=== PATIENT | male | born 1950 | race Caucasian/White ===

== ENCOUNTER 2018-12-02 04:51 | Observation (INO) | payer OTHER, MEDICARE ==
--- NOTE | 2018-11-29 10:54 | GHP ---
[f rep st] PREOP HISTORY AND PHYSICAL DATE OF ADMISSION: 12/02/2018 DATE OF SURGERY AND ADMISSION: December 02. HISTORY OF PRESENT ILLNESS: The patient is a 68-year-old male with left arm and shoulder pain. He has a history of an anterior cervical diskectomy and fusion in 2009 in [place] at C5-C7. He recently had an incident where he slipped and fell on ice, which resulted in arm numbness, tingling and the inability to move his arms with a warming sensation throughout his body. The symptoms eventually resolved. Today he continues to have occasional bilateral deltoid and biceps pain with burning numbness in bilateral thumbs and into the middle 2 fingers. PAST MEDICAL HISTORY: Hypertension, dyslipidemia. PAST SURGICAL HISTORY: ACDF in 2009, right shoulder surgery, left shoulder surgery. SOCIAL HISTORY: Patient admits to drinking alcohol socially and is a former tobacco user and quit 9 years ago. ALLERGIES: Amoxicillin. CURRENT HOME MEDICATIONS: Multivitamin, lisinopril, Synthroid, albuterol, Tylenol, and Pravachol. FAMILY HISTORY: No pertinent neurosurgical family history. PHYSICAL EXAM: GENERAL: Patient seen and examined. Appears to be in no apparent distress. Mood and affect are appropriate. Alert and oriented. Pupils are equal and reactive. Extraocular movements are intact. Facial expression is symmetrical. Tongue is midline with protrusion. Hearing is grossly intact. Speech is fluent without any dysarthria. Muscle strength is well preserved in his upper and lower extremities at a 5/5 and sensation is intact to light touch. Results MRI of the cervical spine from September 2018 shows prior anterior cervical diskectomy and fusion at C5-C7, mild central spinal stenosis and moderate to severe bilateral neural foraminal narrowing at C3-4. At C4-5, there is moderate to severe central spinal stenosis secondary to disk osteophyte complex that is eccentric to the left and compresses the left aspect of the cord without myelomalacia. Moderate right and abaekemp-rt-xkljqd left neural foraminal narrowing. There is a small disk protrusion and moderate right neural foraminal narrowing at C7-T1. Cervical spine x-ray from October 2018 shows used ACDF at 5-7, CT cervical spine shows healed C5-7 ACDF. Mild bony central canal stenosis at C3-4 and C4-5. Multilevel bony foraminal stenosis, himijimo-dj-eewehg bilateral C3-4, moderate left and mild right C4-5, moderate left and mild right C5-6, tjim-bc-ozpxywev right C7 and moderate right C7-T1. ASSESSMENT/PLAN: In summary, the patient is a 68-year-old male with bilateral upper extremity symptoms with history of prior anterior cervical diskectomy and fusion at C5-7. Recommend proceeding with surgical intervention at this point with an anterior cervical diskectomy and fusion at C3-4 and C4-5. The risks, benefits, and procedure were discussed in detail with the patient as well as the recovery period. We will have ENT assist in surgery with the approach and he has already undergone this preop evaluation in their office. The patient has elected to move forward with surgery. Consents were signed and all questions and concerns were addressed and answered. /[id number]/MODL ZAMZAM
[2018-12-02] MEDS ORDERED: ACETAMINOPHEN 500 MG TAB PO ONE (05:50)
[2018-12-02] MEDS ORDERED: ceFAZolin 2 GM/DEXTROSE 100 ML IV ONE (05:50)
[2018-12-02] MEDS ORDERED: LR 1,000 ML IV ONE (05:51)
--- NOTE | 2018-12-02 06:57 | PDHPUP ---
History & Physical Update H&P update statement: This history and physical update is based on an assessment of the patient which was completed after admission or registration (within 24 hours), but prior to the surgery/procedure. H&P update: H&P reviewed & patient examined
[2018-12-02] MEDS ORDERED: CHLORHEXIDINE GLUC HIBICLENS 118 ML BTL TP ONE (06:59)
[2018-12-02] MEDS ORDERED: SURGIFLO MATRIX KIT WITH THROMBIN 8 ML TP ONE ×2 (06:59→09:26)
[2018-12-02] MEDS ORDERED: BUPIVACAINE/EPI 0.25% 10 ML SDV ONE (06:59)
[2018-12-02] MEDS ORDERED: THROMBIN (BOVINE) 5,000 UNIT VIAL TP ONE (06:59)
[2018-12-02] MEDS ORDERED: BACITRACIN 50,000 UNITS/10 ML SYR IRR ONE (07:00)
[2018-12-02] MEDS ORDERED: MIDAZOLAM 2 MG/2 ML VIAL IVP ONE (07:09)
--- NOTE | 2018-12-02 07:09 | PDANEPAE ---
ANE History of Present Illness C34-C45 ant cervical fusion, discectomy ANE Past Medical History - Cardiovascular History Hx Hypertension: Yes Hx Arrhythmias: No Hx Chest Pain: No Hx Coronary Artery / Peripheral Vascular Disease: No Hx CHF / Valvular Disease: No Hx Palpitations: No - Pulmonary History Hx COPD: No Hx Asthma/Reactive Airway Disease: Yes Hx Recent Upper Respiratory Infection: No Hx Oxygen in Use at Home: No Hx Sleep Apnea: No Sleep Apnea Screening Result - Last Documented: Positive Pulmonary History Comment: INHALER - Neurologic History Hx Cerebrovascular Accident: No Hx Seizures: No Hx Dementia: No - Endocrine History Hx Diabetes: No Endocrine History Comment: HYPOTHYROID - Renal History Hx Renal Disorders: No - Liver History Hx Hepatic Disorders: No - Neurological & Psychiatric Hx Hx Neurological and Psychiatric Disorders: No - Cancer History Hx Cancer: No - Congenital Disorder History Hx Congenital Disorders: No - GI History Hx Gastrointestinal Disorders: No - Other Health History Other Health History: NEG - Chronic Pain History Chronic Pain: Yes (NECK,SHOULDER,ARM) - Surgical History Prior Surgeries: HERNIA KIKE REPAIR. CERVICAL FUSION C5 - C7. L SHOULDER SCOPE. R SHOULDER /CLAVICLE. R KNEE SCOPE. APPENDECTOMY. TONSILLECTOMY ANE Review of Systems Review of Systems: - Exercise capacity METS (RN): 5 METS ANE Patient History - Allergies Allergies/Adverse Reactions: amoxicillin Allergy (Verified 11/11/18 11:35) Vomiting - Home Medications Home Medications: Acetaminophen [Tylenol ES 500 mg (*)] 500 - 1,000 mg PO Q6 PRN 11/11/18 [Last Taken 11/30/18] Albuterol [Proventil Inhaler HFA (*)] 1 - 2 puffs IH Q4H PRN 11/11/18 [Last Taken Unknown] Levothyroxine [Synthroid 25 mcg (*)] 25 mcg PO DAILY06 11/11/18 [Last Taken ] Lisinopril [Zestril 10 mg (*)] 10 mg PO HS 11/11/18 [Last Taken 12/01/18] Multivitamins [Multivitamin (*)] 1 each PO DAILY 11/11/18 [Last Taken 11/30/18] Pravastatin Sodium [Pravachol] 40 mg PO HS 11/11/18 [Last Taken 11/30/18] - NPO status NPO Since - Liquids (Date): 12/02/18 NPO Since - Liquids (Time): 00:01 NPO Since - Solids (Date): 12/01/18 NPO Since - Solids (Time): 16:00 - Smoking Hx Smoking Status: Former smoker - Family Anes Hx Family Hx Anesthesia Complications: NEG ANE Labs/Vital Signs - Vital Signs Blood Pressure: 124/82 Heart Rate: 63 Respiratory Rate: 16 O2 Sat (%): 94 Height: 189.23 cm Weight: 88.904 kg ANE Physical Exam - Airway Neck exam: decreased ROM, spinal fusion Mallampati Score: Class 3 Mouth exam: normal dental/mouth exam - Pulmonary Pulmonary: no respiratory distress, clear to auscultation - Cardiovascular Cardiovascular: regular rate and rhythym, no murmur, rub, or gallop - ASA Status ASA Status: III ANE Anesthesia Plan Anesthesia Plan: general endotracheal anesthesia Total IV Anesthesia: Yes
[2018-12-02] MEDS ORDERED: DEXAMETHASONE 4 MG/ML VIAL ONE (07:14)
[2018-12-02] MEDS ORDERED: REMIFENTANIL HCL 1 MG VIAL ONE ×2 (07:14)
[2018-12-02] MEDS ORDERED: PROPOFOL/EMULSION 500 MG/50 ML BOTTLE IV ONE ×4 (07:14→09:26)
[2018-12-02] MEDS ORDERED: ROCURONIUM 50 MG/5 ML VIAL ONE (07:14)
[2018-12-02] MEDS ORDERED: LIDOCAINE 2% 100 MG/5 ML SYR ONE (07:14)
[2018-12-02] MEDS ORDERED: PROPOFOL 200 MG/20 ML VIAL ONE (07:14)
[2018-12-02] MEDS ORDERED: MAGNESIUM HYDROXIDE 30 ML UDCUP PO PRN (08:15)
[2018-12-02] MEDS ORDERED: LACTULOSE 20 GM/30 ML UDCUP PO PRN (08:15)
[2018-12-02] MEDS ORDERED: POLYETHYLENE GLYCOL 3350 17 GM PKT PO PRN (08:15)
[2018-12-02] MEDS ORDERED: ALBUTEROL 60 PUFFS/8 GM MDI IH PRN (08:15)
[2018-12-02] MEDS ORDERED: BISACODYL 10 MG SUPP PR PRN (08:15)
[2018-12-02] MEDS ORDERED: diphenhydrAMINE 25 MG CAP PO PRN (08:15)
[2018-12-02] MEDS ORDERED: ONDANSETRON DISINTEGRATING 4 MG TAB PO PRN (08:15)
[2018-12-02] MEDS ORDERED: NS 1,000 ML IV SCH (08:15)
[2018-12-02] MEDS ORDERED: ONDANSETRON 4 MG/2 ML VIAL IVP PRN (08:15)
[2018-12-02] MEDS ORDERED: NALOXONE HCL 0.4 MG/ML INJ IVP PRN (10:23)
[2018-12-02] MEDS ORDERED: LR 500 ML IV PRN (10:23)
[2018-12-02] MEDS ORDERED: fentaNYL 100 MCG/2 ML INJ IVP PRN (10:23)
[2018-12-02] MEDS ORDERED: PROMETHAZINE HCL 25 MG/ML INJ IVP PRN (10:23)
[2018-12-02] MEDS ORDERED: MEPERIDINE 25 MG/0.5 ML AMP IVP PRN (10:23)
--- NOTE | 2018-12-02 10:43 | POSTOPPROG ---
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 Alert. PERRL Muscle strength full at 5/5 Incision with dressing c/d/i
[2018-12-02] MEDS ORDERED: fentaNYL 100 MCG/2 ML INJ ONE (10:48)
[2018-12-02] MEDS ORDERED: DIAZEPAM 5 MG/ML 1 ML SYR ONE (11:01)
[2018-12-02] MEDS: DIAZEPAM 5 MG/ML 1 ML SYR IVP PRN ×2 (11:02→11:12)
--- NOTE | 2018-12-02 11:17 | GHP ---
[f rep st] PREOP HISTORY AND PHYSICAL DATE OF ADMISSION: 12/02/2018 PREOPERATIVE DIAGNOSIS: Cervical spondylosis, radiculopathy, previous cervical fusion. POSTOPERATIVE DIAGNOSIS: Cervical spondylosis, radiculopathy, previous cervical fusion. PROCEDURE: C3-4, C4-5 anterior cervical diskectomy and fusion with LDR FRANCISCO-C implants approach, auto graft and microscope. SECOND SURGEON: Mary Stubbs MD. EBL: 40 mL. FLUIDS: 1800 mL crystalloid. URINE OUTPUT: None. DRAINS: None. SPECIMENS: None. COMPLICATIONS: None. INDICATIONS: This is a 68-year-old male with a previous anterior cervical fusion, which is well fuse d. He has adjacent segment disease at C3-4 and 4-5 with radiculopathy, and has failed conservative m anagement. He elected to move forward with revision surgery. Second surgeon was required as ENT was required for approach given the fact that he had previous surgery and there was concern for scar, an d esophageal scarring in particular. Dr. Stubbs will dictate the approach. I am dictating the ante rior cervical diskectomy portion. After Dr. Stubbs had achieved our approach, we had placed a Shadow-Line retractor and placed Middlebrook pins at C3 and C4. Took x-rays, verified we were in the appropriate position. Placed patient under distraction. Neuromonitoring remained stable. Microscope was brought out. Using the high-speed dri ll, we drilled off the anterior osteophyte and the disk and cartilaginous endplate of C3-4, opening t he PLL with a micro upgoing curette, extending this with 1 and 2 Koros, removing the disk and osteoph yte from the superior and inferior endplate out bilateral lateral foramina, until foraminal fat was v isualized bilaterally and the foramina were well decompressed. We then harvested autograft and measu red a 9 x 12 x 14 mm graft. With the trial, this was the appropriate level. We obtained meticulous hemostasis with FloSeal. We then packed the graft with the patient's own harvested bone and tamped i t in place. It was verified to be in the appropriate position. Removed the distraction and removed the Middlebrook pins. Tamped the long wing superiorly with the 1 impactor. Verified it was in the approp riate position. Cold welded with the 1 impactor, cold welded with the 2 impactor. We then placed a short wing inferiorly, tamped it in place with a 1, verified it was in the appropriate position under x-ray. Cold welded with the 1 impactor, cold welded with the 2 impactor. We then removed the appli cator and placed a pin inferiorly at the C5 and took another x-ray, verified it was in the appropriat e position. Placed the patient under distraction. Using a high-speed drill, removed the anterior os teophytes and cartilaginous endplates. Coming down on the posterior longitudinal ligament at this le ferdinand, there was more scar tissue. However, we were able to open the PLL and clear it with a 1 Kerriso n and then a 2 Koros, removing disk and osteophyte from the superior and inferior endplate out bilate ral lateral foramina until foraminal fat was visualized, and that we were well decompressed. We then harvested autograft from this level and then measured an 8 x 12 x 14 mm graft, and tamped under x-ra y. Neuromonitoring remained stable. We then packed the graft with the patient's own bone, tamped it into place, removed the superior and inferior pins, and verified we had meticulous hemostasis. Used a short wing superiorly, tamped it into place with the 1 impactor, verified it was in the appropriat e position under x-ray. Cold welded with the 1 impactor, cold welded with the 2 impactor. We then t amped the short wing down inferiorly with the 1 impactor, verified it was in the appropriate position . Cold welded with the 1 impactor, cold welded with the 2 impactor. Neuromonitoring remained stable throughout the entire case. We copiously irrigated with over a liter of gentamicin-infused saline. Removed the microscope. Trocared a drain out inferiorly, placed in the prevertebral space. Meticul ous hemostasis had been obtained. Inspected the moreno on the way out and then closed the platysma wi th 3-0 Vicryl pop-offs, subcutaneous layer with 3-0 Vicryl pop-offs. The skin was closed with 4-0 ru nning Monocryl and Steri-Strips. The wound was dressed with gauze and a Tegaderm. Patient tolerated the procedure well. Drain was sutured in with 2-0 Vicryl pop-off placed to bulb suction. Neuromoni toring was stable. There were no complications. /[id number]/MODL
[2018-12-02] MEDS ORDERED: HYDROmorphONE/DILAUDID 2 MG/ML INJ ONE (11:22)
[2018-12-02] MEDS: HYDROmorphONE/DILAUDID 2 MG/ML INJ IVP PRN ×5 (11:23→13:04)
[2018-12-02] MEDS ORDERED: ENALAPRILAT DIHYDRATE 1.25 MG/ML VIAL IVP PRN (12:08)
[2018-12-02] MEDS ORDERED: ENALAPRILAT DIHYDRATE 1.25 MG/ML VIAL ONE (12:12)
--- NOTE | 2018-12-02 12:35 | POSTANESTH ---
Post Anesthetic Evaluation Cardiovascular Status: Normal, Stable, Tx Hyper/Hypo-tension Respiratory Status: Normal, Stable Level of Consciousness/Mental Status: Can Participate in Eval, Alert and Oriented Pain Control: Adequate, Prn Tx Ordered Nausea/Vomiting Control: Adequate, Prn Tx Ordered Complications Possibly Related to Anesthesia: None Noted (treating hypertension with vasotec due to HR in 60s, feeling well and assymptomatic)
[2018-12-02] MEDS ORDERED: ENALAPRILAT DIHYDRATE 1.25 MG/ML VIAL IVP ONE (12:45)
[2018-12-02] MEDS: MULTIVITAMINS 1 EACH TAB PO SCH (14:35)
[2018-12-02] MEDS: SENNOSIDES/DOCUSATE SODIUM TAB PO SCH ×2 (14:35→20:15)
[2018-12-02] MEDS: ACETAMINOPHEN 500 MG TAB PO SCH ×2 (14:40→22:17)
[2018-12-02] MEDS: ceFAZolin 2 GM/DEXTROSE 100 ML IV SCH ×2 (15:51→22:12)
[2018-12-02] MEDS: METHOCARBAMOL 750 MG TAB PO PRN (20:14)
[2018-12-02] MEDS ORDERED: PRAVASTATIN SODIUM 40 MG TAB PO SCH (21:00)
[2018-12-02] MEDS ORDERED: LISINOPRIL 10 MG TAB PO SCH (21:00)
[2018-12-02] MEDS: oxyCODONE IR 5 MG TAB PO PRN (22:19)
[2018-12-03] MEDS: METHOCARBAMOL 750 MG TAB PO PRN ×2 (05:14→10:31)
[2018-12-03] MEDS: oxyCODONE IR 5 MG TAB PO PRN (05:14)
[2018-12-03] MEDS ORDERED: LEVOTHYROXINE 25 MCG TAB PO SCH (06:00)
[2018-12-03 07:17] VITALS: BP 130/90
[2018-12-03] MEDS: ACETAMINOPHEN 500 MG TAB PO SCH (07:19)
[2018-12-03] MEDS: SENNOSIDES/DOCUSATE SODIUM TAB PO SCH (08:43)
[2018-12-03] MEDS: MULTIVITAMINS 1 EACH TAB PO SCH (08:43)
--- NOTE | 2018-12-03 09:01 | NEUSURGPN ---
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 Voice feels a little horse, but tolerating PO okay Objective: Exam Awake. Alert. PERRL Muscle strength full at 5/5 Incision with dressing c/d/i - Physician Discussed Patient with : [facility] Physical Exam - Vitals, I&O, Labs I and O 12/02/18 12/03/18 12/04/18 05:59 05:59 05:59 Intake Total 2265 Output Total 2420 Balance -155 Weight 88.904 kg Intake: Oral (ml) 800 IV Intake (ml) 1100 IV Infused (ml) 365 Ns 1,000 ml @ 75 mls/hr 250 IV CONT JULIO Rx#: [id number] ceFAZolin 2 GM/DEXTROSE 115 100 ml @ 200 mls/hr IV Q8HRS JULIO Rx#:[id number] Output: Urine (ml) 2375 Toilet 600 Urinal 1775 Estimated Blood Loss (ml) 20 HESHAM Drain Output (ml) 25 #1 Neck 25 Other: Number of Voids Toilet 2 Urinal 1 Bladder Scan Volume (ml) 677 Vital Signs Temp Pulse Resp BP Pulse Ox 36.4 C 72 17 130/90 H 93 12/03/18 07:16 12/03/18 07:16 12/03/18 07:16 12/03/18 07:16 12/03/18 07:16 ICD10 Worksheet Patient Problems: Problems Problem Status Onset Cervical stenosis of spine Acute - ICD10 Problem Qualifiers (1) Cervical stenosis of spine
--- NOTE | 2018-12-03 10:29 | ASMTLACE ---
LACE Length of stay for Answers: 2 days current admission Acuity / Level of Answers: Yes Care: Did the patient have an inpatient admission? Comorbidities - select Answers: Opioid dependence all that apply / Chronic pain Other Notes: HTN # of Emergency department Answers: 0 visits in the last 6 months Score: 10 Date Signed: 12/03/2018 10:29 AM Electronically Signed By:MARION Jain
--- NOTE | 2018-12-03 10:31 | ASMTCMCOM ---
CM Note CM Note Notes: Pt had planned surgery for cervical stenosis, resides with spouse. 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 No CM d/c needs identified. Date Signed: 12/03/2018 10:30 AM Electronically Signed By:MARION Jain
--- NOTE | 2018-12-03 22:19 | GOP ---
[f rep st] OPERATIVE REPORT DATE OF OPERATION: 12/02/2018 SURGEON: Mary Stubbs MD ANESTHESIA: General. PREOPERATIVE DIAGNOSIS: 1. cervical spondylosis 2. Prior anterior cervical discectomy and fusion of C5-7 POSTOPERATIVE DIAGNOSIS: 1. Cervical spondylosis 2. Prior anterior cervical discectomy and fusion of C5-7. PROCEDURE PERFORMED: Anterior cervical discectomy and fusion of C3/4 and C4/5 FINDINGS: The patient was found to have normal neck anatomy with noted osteophytes C3-5. I performed the approach until we got down to the spine and then Dr. Olga Hendrix took over and performed the ACDF. ESTIMATED BLOOD LOSS: Minimal. INDICATIONS: The patient is a very pleasant man who has a history of some cervical spine disease. He had a previous fusion in the past of C5-7and now requires fusion of C3-5. Dr. Hendrix asked me to help assist her with the exposure for this secondary to his prior surgery and the risk of some scar tissue, and so I performed the approach, and she performed the rest of the procedure. DESCRIPTION OF PROCEDURE: The patient was first seen in the preoperative area where informed consent was obtained. He was then brought back to the operating room were Anesthesia sedated and intubated him. He was prepped and draped in a sterile fashion. Neuromonitoring was employed. A universal time-out protocol was performed by me and then confirmed the patient and the procedure. We had initially taken an x-ray to confirm the location of our incision and after confirming this, about 5 cc of 1% lidocaine with 1:100,000 epinephrine was injected into this area on the right side of the neck. After this had sufficient time to act, about a 4 cm incision was made to the right of midline in the previously marked-out skin crease. A 15 blade was used to make an incision through the skin and subcutaneous tissues, as well as through the platysma. A small subplatysmal flap was elevated superiorly and inferiorly and then a Weitlaner retractor was used to help with exposure. Once this was done, I found the edge of the SCM muscle, and this fascia was divided and then gently retracted laterally. At this point, I used blunt dissection to dissect down just medial to the carotid sheath and retracting the laryngeal cartilages medially. I was able to dissect down fairly quickly to the spine. Some of the fascia overlying this was released, and then Dr. Hendrix at this point took over. She placed an 18-gauge needle in the C4-5 disk space, and then an x-ray was taken to confirm our location. We then did this again for C3/4 and once we had confirmed both these locations, and she had good access, she took over the procedure and completed the rest of this. From my standpoint, there were no complications, and the patient did well. There was no significant blood loss or issues. Dr. Hendrix's portion of the procedure will be dictated separately. The patient was extubated in the PACU after the procedure was terminated, and he tolerated this well. All counts were correct, and there were no complications. CO-SURGEON: Olga Hendrix DO. COMPLICATIONS: None. /[id number]/MODL MTDD
[2018-12-05] MEDS ORDERED: ENOXAPARIN 40 MG/0.4 ML SYR SC SCH (09:00)
== END 2018-12-03 11:42 | disposition home or self-care (01) ==
LOC: INTOOBSV 04:51 → F3N 04:51
PROVIDERS: ADMIT Neurological Surgery; ATTEND Neurological Surgery
PROC: 0RB30ZZ Excision of Cervical Vertebral Disc, Open Approach (ICD-10-PCS; principal; 2018-12-02 07:30)
PROC: 4A10X4G Monitoring of Central Nervous Electrical Activity, Intraoperative, External Approach (ICD-10-PCS; principal; 2018-12-02 07:30)
PROC: 0RG2070 Fusion of 2 or more Cervical Vertebral Joints with Autologous Tissue Substitute, Anterior Approach, Anterior Column, Open Approach (ICD-10-PCS; principal; 2018-12-02 07:30)
DX: M47.22 Other spondylosis with radiculopathy, cervical region (principal); Z98.1 Arthrodesis status; I10 Essential (primary) hypertension; E78.5 Hyperlipidemia, unspecified; E03.9 Hypothyroidism, unspecified
CPT/HCPCS: 22551; 22552; 72040; 76000; 92610; 97161; 97165; C1713; J0690; J1100; J1170; J2001; J2250; J2704; J3010; J3360